=== PATIENT | male | born 1975 | race Caucasian/White ===

== ENCOUNTER 2019-05-28 20:08 | Observation (INO) | payer OTHER, SELFPAY ==
--- NOTE | 2019-05-28 20:55 | RAD REPORT ---
EXAM DESCRIPTION: CT - Stone Protocol - 05/28/2019 8:36 pm CLINICAL HISTORY: Flank pain. FLANK PAIN COMPARISON: No comparisons TECHNIQUE: Axial images were obtained without oral or IV contrast. Lack of contrast limits solid org an and vascular assessment. The [id number] spans the entirety of the system partially obscuring uppermost abdomen and lung bases. Coronal reformatted images were obtained and reviewed. All CT scans are performed using dose optimization technique as appropriate and may include automated exposure control or mA/KV adjustment according to patient size. FINDINGS: The lower lung duran are clear. Imaged portions of the liver and spleen show no suspicious findings on non-contrast imaging. The panc reas and adrenal glands are normal. No pathologic lymphadenopathy in the abdomen or pelvis. A 7 mm stone (1350 HU) is present at the left UPJ resulting in mild left hydronephrosis. Additional s mall stones are present bilaterally, largest inferior calyx left kidney measuring 6 mm. No bowel obstruction, free air, free fluid or abscess. Normal appendix noted.Mild sigmoid diverticulo sis coli without diverticulitis. No significant bony abnormality. Small bilateral fat containing inguinal hernias. IMPRESSION: 7 mm stone is present at the left UPJ resulting in mild left hydronephrosis.
[2019-05-28 21:06] LABS: BUN Blood Urea Nitrogen 14 mg/dL (7-18); Bicarbonate 28 mmol/L (21-32); Glucose Level 145 mg/dL (74-106); Potassium 3.9 mmol/L (3.5-5.1); Sodium Level 139 mmol/L (136-145)
[2019-05-28] MEDS ORDERED: ONDANSETRON 4 MG/2 ML VIAL ONE (21:08)
[2019-05-28] MEDS ORDERED: MORPHINE 4 MG/ML SYR ONE (21:08)
[2019-05-28] MEDS ORDERED: MAGNESIUM SULFATE 1 gm IVPB 1 GM/100 ML BAG IV ONE (21:08)
[2019-05-28] MEDS ORDERED: TAMSULOSIN 0.4 MG SR CAP ONE (21:08)
[2019-05-28 21:29] LABS: Urine Blood 2+ (NEG); Urine Glucose NEGATIVE (NEG); Urine Protein 1+ (NEG); Urine Specific Gravity 1.025 (1.005-1.030); Urine pH 5.5 (5.0-7.0)
--- NOTE | 2019-05-28 21:55 | ER ---
Nurse's Notes [facility] Name: Wili Negro Age: 43 yrs Sex: Male : 1975 Arrival Date: 05/28/2019 Time: 20:11 Bed 5 Private MD: Diagnosis: Calculus of kidney and ureter-7mm UPJ Presentation: 05/28 20:21 Presenting complaint: Patient states: Left flank pain that began earlier today; hx of lp1 kidney stones, states similar symptoms now; Denies any pain with urination at this time. Transition of care: patient was not received from another setting of care. Onset of symptoms was May 28, 2019. Risk Assessment: Do you want to hurt yourself or someone else? Patient reports no desire to harm self or others. Initial Sepsis Screen: Does the patient meet any 2 criteria? No. Patient's initial sepsis screen is negative. Does the patient have a suspected source of infection? No. Patient's initial sepsis screen is negative. Care prior to arrival: None. 20:21 Method Of Arrival: Ambulatory lp1 20:21 Acuity: SATISH 3 lp1 Historical: - Allergies: 20:23 Sulfa (Sulfonamide Antibiotics); lp1 20:23 Bactrim; lp1 - Home Meds: 20:23 multivitamin oral tab daily [Active]; Magnesium Oxide Oral [Active]; lp1 - PMHx: 20:23 Sinusitis; Hypertension; lp1 - PSHx: 20:23 Lithotripsy; lp1 - Immunization history:: Adult Immunizations up to date. - Social history:: Smoking status: Patient uses tobacco products, chewing tobacco. - Ebola Screening: : No symptoms or risks identified at this time. Screenin:25 Abuse screen: Denies threats or abuse. Denies injuries from another. Nutritional lp1 screening: No deficits noted. Tuberculosis screening: No symptoms or risk factors identified. Fall Risk None identified. Assessment: 20:24 General: Appears in no apparent distress. Behavior is calm, cooperative, appropriate lp1 for age. Pain: Complains of pain in left low back Pain currently is 4 out of 10 on a pain scale. Quality of pain is described as sharp, Pain began suddenly. Neuro: Level of Consciousness is awake, alert, obeys commands, Oriented to person, place, time, situation. Cardiovascular: Patient's skin is warm and dry. Respiratory: Respiratory effort is even, unlabored. GI: No signs and/or symptoms were reported involving the gastrointestinal system. : Reports pain in left flank(s), Denies burning with urination. EENT: No signs and/or symptoms were reported regarding the EENT system. Derm: Skin is pink, warm \T\ dry. Musculoskeletal: No deficits noted. 21:30 Reassessment: Patient appears in no apparent distress at this time. Patient returned lp1 from radiology at this time; states pain decreased to left flank. 22:30 Reassessment: Patient appears in no apparent distress at this time. Patient and/or lp1 family updated on plan of care and expected duration. Pain level reassessed. Patient denies any discomfort at this time. 23:03 Reassessment: Attempted to call report, nurse unavailable. lp1 Vital Signs: 20:22 BP 141 / 110; Pulse 76; Resp 18; Temp 97.7(TE); Pulse Ox 100% on R/A; Weight 108.86 kg; lp1 Height 5 ft. 8 in. (172.72 cm); Pain 4/10; 21:52 BP 131 / 81; Pulse 70; Resp 18; Pulse Ox 99% on R/A; lp1 23:00 BP 132 / 80; Pulse 65; Resp 18; Pulse Ox 97% on R/A; Pain 5/10; lp1 20:22 Body Mass Index 36.49 (108.86 kg, 172.72 cm) lp1 ED Course: 20:11 Patient arrived in ED. ag3 20:15 Annita Lynn FNP-C is [facility]. kb 20:15 Judd Villarreal MD is Attending Physician. kb 20:20 Nupur Swann, MANUELA is Primary Nurse. lp1 20:22 Triage completed. lp1 20:22 Arm band placed on. lp1 20:25 Patient has correct armband on for positive identification. lp1 20:37 CT Stone Protocol In Process Unspecified. EDMS 21:21 Abdomen 1 View (KUB) XRAY In Process Unspecified. EDMS 21:28 Initial lab(s) drawn, by me, sent to lab. Inserted saline lock: 20 gauge in left cm6 antecubital area, using aseptic technique. 21:53 Kendra Staton MD is Hospitalizing Provider. kb 21:53 No provider procedures requiring assistance completed. lp1 22:58 Patient admitted, IV remains in place. lp1 Administered Medications: 21:10 Drug: morphine 4 mg {Note: RASS 0.} Route: IVP; Site: left antecubital; lp1 21:37 Follow up: Response: Pain is decreased lp1 21:10 Drug: Zofran 4 mg Route: IVP; Site: left antecubital; lp1 21:37 Follow up: Response: No adverse reaction lp1 21:10 Drug: Flomax 0.4 mg Route: PO; lp1 22:59 Follow up: Response: No adverse reaction lp1 21:36 Drug: Magnesium Sulfate 1 grams Route: IVPB; Infused Over: 1 hrs; Site: left lp1 antecubital; 22:40 Follow up: IV Status: Completed infusion; IV Intake: 100ml lp1 23:28 Drug: TORadol - Ketorolac 15 mg Route: IVP; Site: left antecubital; lp1 23:31 Follow up: Response: Medication administered at discharge. lp1 Intake: 22:40 IV: 100ml; Total: 100ml. lp1 Outcome: 21:54 Decision to Hospitalize by Provider. kb 22:58 Condition: stable lp1 22:58 Instructed on the need for admit. 23:18 Admitted to Tele accompanied by tech, via wheelchair, room 410, with chart, Report lp1 called to MANUELA Hussein 23:31 Patient left the ED. lp1 Signatures: Dispatcher [employer] EDAnnita Benjamin, BRYAN SINHA-Nupur Perdue RN RN lp1 Shagufta Cramer 3 Yesi Lyn cm6 Corrections: (The following items were deleted from the chart) 23:28 23:00 BP 132 / 80; Pulse 65bpm; Resp 18bpm; Pulse Ox 97% RA; lp1 lp1
--- NOTE | 2019-05-28 21:55 | EDPHYS ---
Physician Documentation [facility] Name: Wili Negro Age: 43 yrs Sex: Male : 1975 Arrival Date: 05/28/2019 Time: 20:11 Bed 5 Private MD: ED Physician Judd Villarreal HPI: 05/28 20:39 This 43 yrs old Male presents to ER via Ambulatory with complaints of Back kb Pain. 20:47 The patient complains of pain in the left flank. The pain does not radiate. Onset: The kb symptoms/episode began/occurred just prior to arrival. Modifying factors: The symptoms are alleviated by nothing. the symptoms are aggravated by nothing. Associated signs and symptoms: The patient has no apparent associated signs or symptoms. Severity of pain: At its worst the pain was moderate in the emergency department the pain is unchanged. The patient has not experienced similar symptoms in the past. The patient has not recently seen a physician. 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 Has had kidney stones in the past and it feels the same. Historical: - Allergies: 20:23 Sulfa (Sulfonamide Antibiotics); lp1 20:23 Bactrim; lp1 - Home Meds: 20:23 multivitamin oral tab daily [Active]; Magnesium Oxide Oral [Active]; lp1 - PMHx: 20:23 Sinusitis; Hypertension; lp1 - PSHx: 20:23 Lithotripsy; lp1 - Immunization history:: Adult Immunizations up to date. - Social history:: Smoking status: Patient uses tobacco products, chewing tobacco. - Ebola Screening: : No symptoms or risks identified at this time. ROS: 20:40 Constitutional: Negative for fever, chills, and weight loss, ENT: Negative for injury, kb pain, and discharge, Neck: Negative for injury, pain, and swelling, Cardiovascular: Negative for chest pain, palpitations, and edema, Respiratory: Negative for shortness of breath, cough, wheezing, and pleuritic chest pain, Abdomen/GI: Negative for abdominal pain, nausea, vomiting, diarrhea, and constipation, : Negative for injury, bleeding, discharge, and swelling, MS/Extremity: Negative for injury and deformity, Skin: Negative for injury, rash, and discoloration, Neuro: Negative for headache, weakness, numbness, tingling, and seizure. 20:40 Back: Positive for flank pain, on the left. Exam: 20:40 Constitutional: This is a well developed, well nourished patient who is awake, alert, kb and in no acute distress. Head/Face: Normocephalic, atraumatic. ENT: Nares patent. No nasal discharge, no septal abnormalities noted. Tympanic membranes are normal and external auditory canals are clear. Oropharynx with no redness, swelling, or masses, exudates, or evidence of obstruction, uvula midline. Mucous membranes moist. Neck: Trachea midline, no thyromegaly or masses palpated, and no cervical lymphadenopathy. Supple, full range of motion without nuchal rigidity, or vertebral point tenderness. No Meningismus. Chest/axilla: Normal chest wall appearance and motion. Nontender with no deformity. No lesions are appreciated. Cardiovascular: Regular rate and rhythm with a normal S1 and S2. No gallops, murmurs, or rubs. Normal PMI, no JVD. No pulse deficits. Respiratory: Lungs have equal breath sounds bilaterally, clear to auscultation and percussion. No rales, rhonchi or wheezes noted. No increased work of breathing, no retractions or nasal flaring. Abdomen/GI: Soft, non-tender, with normal bowel sounds. No distension or tympany. No guarding or rebound. No evidence of tenderness throughout. Skin: Warm, dry with normal turgor. Normal color with no rashes, no lesions, and no evidence of cellulitis. MS/ Extremity: Pulses equal, no cyanosis. Neurovascular intact. Full, normal range of motion. Neuro: Awake and alert, GCS 15, oriented to person, place, time, and situation. Cranial nerves II-XII grossly intact. Motor strength 5/5 in all extremities. Sensory grossly intact. Cerebellar exam normal. Normal gait. 20:40 Back: pain, is absent, ROM is normal, normal spinal alignment noted, CVA tenderness, that is mild, that is moderate, is noted on the left. Vital Signs: 20:22 BP 141 / 110; Pulse 76; Resp 18; Temp 97.7(TE); Pulse Ox 100% on R/A; Weight 108.86 kg; lp1 Height 5 ft. 8 in. (172.72 cm); Pain 4/10; 21:52 BP 131 / 81; Pulse 70; Resp 18; Pulse Ox 99% on R/A; lp1 23:00 BP 132 / 80; Pulse 65; Resp 18; Pulse Ox 97% on R/A; Pain 5/10; lp1 20:22 Body Mass Index 36.49 (108.86 kg, 172.72 cm) lp1 MDM: 20:15 Patient medically screened. kb 20:40 Data reviewed: vital signs, nurses notes. Data interpreted: Pulse oximetry: on room air kb is 100 %. Interpretation: normal. 21:22 Physician consultation: Fran Briscoe MD was contacted at 21:05, regarding consult, kb patient's condition, and will see patient in office, tomorrow. 21:47 Counseling: I had a detailed discussion with the patient and/or guardian regarding: the kb historical points, exam findings, and any diagnostic results supporting the discharge/admit diagnosis, lab results, radiology results, the need for further work-up and treatment in the hospital. 21:51 ED course: Pt still in pain and requests to be admitted. Dr Briscoe will consult.. 05/28 20:17 Order name: Basic Metabolic Panel; Complete Time: 21:14 kb 05/28 20:36 Order name: Urine Dipstick--Ancillary (enter results); Complete Time: 21:42 mw2 05/28 20:17 Order name: CT Stone Protocol; Complete Time: 20:57 kb 05/28 21:04 Order name: Abdomen 1 View (KUB) XRAY 05/28 21:51 Order name: CBC with Diff 05/28 20:17 Order name: IV Start; Complete Time: 20:32 kb 05/28 20:17 Order name: Urine Dipstick-Ancillary (obtain specimen); Complete Time: 20:36 kb 05/28 22:07 Order name: CONS Physician Consult EDMS Administered Medications: 21:10 Drug: morphine 4 mg {Note: RASS 0.} Route: IVP; Site: left antecubital; lp1 21:37 Follow up: Response: Pain is decreased lp1 21:10 Drug: Zofran 4 mg Route: IVP; Site: left antecubital; lp1 21:37 Follow up: Response: No adverse reaction lp1 21:10 Drug: Flomax 0.4 mg Route: PO; lp1 22:59 Follow up: Response: No adverse reaction lp1 21:36 Drug: Magnesium Sulfate 1 grams Route: IVPB; Infused Over: 1 hrs; Site: left lp1 antecubital; 22:40 Follow up: IV Status: Completed infusion; IV Intake: 100ml lp1 23:28 Drug: TORadol - Ketorolac 15 mg Route: IVP; Site: left antecubital; lp1 23:31 Follow up: Response: Medication administered at discharge. lp1 Disposition: 05/29 07:25 Co-signature as Attending Physician, Judd Villarreal MD I agree with the assessment and wa plan of care. Disposition: 05/28/19 21:54 Hospitalization ordered by Kendra Staton for Observation. Preliminary diagnosis is Calculus of kidney and ureter - 7mm UPJ. - Bed requested for Telemetry/MedSurg (observation). - Status is Observation. lp1 - Condition is Stable. - Problem is new. - Symptoms are unchanged. UTI on Admission? No Signatures: Dispatcher [employer] [facility] Annita Lynn, ERNESTINE-C GRIDDLE COOK-Nupur Perdue, RN RN lp1 Judd Villarreal MD MD wa Aguilar, Jose, RN RN ja1 Corrections: (The following items were deleted from the chart) 05/28 21:54 21:54 Hospitalization Ordered by Kendra Staton MD for Observation. Preliminary diagnosis kb is Calculus of kidney and ureter. Bed requested for Telemetry/MedSurg (observation). Status is Observation. Condition is Stable. Problem is new. Symptoms are unchanged. UTI on Admission? No. gustavo 22:22 22:07 NPO ordered. [facility] 22:54 21:54 05/28/2019 21:54 Hospitalization Ordered by Kendra Staton MD for Observation. ja1 Preliminary diagnosis is Calculus of kidney and ureter - 7mm UPJ. Bed requested for Telemetry/MedSurg (observation). Status is Observation. Condition is Stable. Problem is new. Symptoms are unchanged. UTI on Admission? No. gustavo 23:31 22:54 05/28/2019 21:54 Hospitalization Ordered by Kendra Staton MD for Observation. lp1 Preliminary diagnosis is Calculus of kidney and ureter - 7mm UPJ. Bed requested for Telemetry/MedSurg (observation). Status is Observation. Condition is Stable. Problem is new. Symptoms are unchanged. UTI on Admission? No. ja1
--- NOTE | 2019-05-28 21:59 | RAD REPORT ---
EXAM DESCRIPTION: RAD - Abdomen 1 View (KUB) - 05/28/2019 9:24 pm CLINICAL HISTORY: kidney stone Pain COMPARISON: Stone Protocol dated 05/28/2019 FINDINGS: The bowel gas pattern is non-obstructive. No evidence of free air or pneumatosis. [place] c alculus is present in the region of the left UPJ, just superior to the left L3 transverse process. Ad ditional calculus noted inferior calyx left kidney.
[2019-05-28 22:22] LABS: Absolute Lymphocytes (CBC) 2.6 K/uL (0.7-4.9); Hematocrit 43.2 % (39.6-49.0); Lymphocytes % 27.6 % (15.3-44.8); MPV 7.3 fL (7.6-11.3); RBC Red Blood Cell Count 4.84 M/uL (4.33-5.43)
[2019-05-28] MEDS ORDERED: ACETAMINOPHEN 500 MG TAB PO PRN (22:28)
[2019-05-28] MEDS ORDERED: ONDANSETRON 4 MG/2 ML VIAL IV PRN (22:28)
[2019-05-28] MEDS ORDERED: KETOROLAC 30 MG/ML INJ IV PRN (22:28)
[2019-05-28] MEDS ORDERED: HYDROCODONE/APAP 5/325 MG TAB PO PRN (22:28)
[2019-05-28] MEDS ORDERED: MORPHINE 2 MG/ML SYR IV PRN (22:28)
[2019-05-28] MEDS ORDERED: DOCUSATE NA 100 MG CAP PO PRN (22:28)
--- NOTE | 2019-05-28 23:18 | P.HP ---
Certification for Inpatient Patient admitted to: Observation With expected LOS: <2 Midnights Patient will require the following post-hospital care: None Practitioner: I am a practitioner with admitting privileges, knowledge of patient current condition, hospital course, and medical plan of care. Services: Services provided to patient in accordance with Admission requirements found in Title 42 Section 412.3 of the Code of Federal Regulations Patient History Date of Service: 05/28/19 Reason for admission: 7mm left UPJ stone History of Present Illness: concepcion weems is a 43yoM w/ pmhx of nephrolithasis and tobacco dependence who presents today with acute onset left flank pain starting prior to presentation. he reports that his urine has been the same color, but he has noticed an increase in ur frequency and abdominal bloating x 2 days. he reports hx of renal stones x 10yrs. he states last episode was 10/2018 w/ surgical intervention to remove several right sided stones. he reports tobacco use - dips 1 can/day x 20yrs. he denies fever, chills, JUSTIN, N/V/CP/SOB, dizziness, cough, diarrhea, constipation, rashes, sores, bruising. he denies drugs andetoh use. Allergies Sulfa (Sulfonamide Antibiotics) Allergy (Unverified 12/12/16 19:08) Unknown Sulfa (Sulfonamide An Allergy (Uncoded 10/22/16 18:43) Unknown - Social History Smoking Status: Never smoker (dips - 1can/day) Alcohol use: No CD- Drugs: No Review of Systems General: Unremarkable Eyes: Unremarkable ENT: Unremarkable Respiratory: Unremarkable Cardiovascular: Unremarkable Gastrointestinal: Unremarkable Genitourinary: Frequency, As per HPI Musculoskeletal: Unremarkable Integumentary: Unremarkable Neurological: Unremarkable Lymphatics: Unremarkable Physical Examination - Physical Exam General: Alert, In no apparent distress, Oriented x3, Cooperative, Other ( abdominal obesity, conversational, not ill or toxic appearing, interactive a/ox3 , ) HEENT: Atraumatic, PERRLA, Mucous membr. moist/pink, EOMI Neck: Supple Respiratory: Clear to auscultation bilaterally, Normal air movement Cardiovascular: No edema, Normal pulses, Regular rate/rhythm, No murmurs Capillary refill: <2 Seconds Gastrointestinal: Normal bowel sounds, Soft and benign, No rebound, No guarding , Distended (very mild) Musculoskeletal: No clubbing, No swelling, No tenderness Integumentary: No rashes, No breakdown, No significant lesion Neurological: Cranial nerves 3-12 intact, Other (gait not tested) External genitalia: Deferred Rectal: Deferred Other Physical/Emotional Findings: +left flank pain - Studies Laboratory Data (last 24 hrs) 05/28/19 22:02: WBC 9.5, Hgb 14.8, Hct 43.2, Plt Count 295 05/28/19 20:28: Sodium 139, Potassium 3.9, BUN 14, Creatinine 0.84, Glucose 145 H Assessment and Plan - Plan 43yoM admitted w/ # nephrolithiasis - 7mm renal stone @ UPJ / recurrence/ UA negative for LE/ nitrites admit to obs npo pMN analgesics urology consulted IVF, strict I/O tsh, a1c in AM # tobacco dependence consoled on cessation and lifestyle changes nicotine patch DVT ppx -SCD - Advance Directives Does patient have a Living Will: No Does patient have a Durable POA for Healthcare: No
[2019-05-28] MEDS ORDERED: KETOROLAC 30 MG/ML INJ ONE (23:26)
[2019-05-29 01:10] VITALS: BMI 36.4
[2019-05-29] MEDS: NA CHLORIDE 0.9% 1,000 ML IV SCH ×2 (01:27→11:12)
[2019-05-29 04:17] LABS: Absolute Lymphocytes (CBC) 2.4 K/uL (0.7-4.9); Basophils % 0.8 % (0-1.3); Hematocrit 40.4 % (39.6-49.0); MPV 7.3 fL (7.6-11.3); RBC Red Blood Cell Count 4.57 M/uL (4.33-5.43)
[2019-05-29 04:24] LABS: Protime INR 0.97
[2019-05-29 04:56] LABS: ALT/SGPT 36 U/L (12-78); AST/SGOT 17 U/L (15-37); Albumin 3.7 g/dL (3.4-5.0); Alkaline Phosphatase 62 U/L (45-117); BUN Blood Urea Nitrogen 13 mg/dL (7-18); Bicarbonate 31 mmol/L (21-32); Bilirubin Total 0.3 mg/dL (0.2-1.0); Glucose Level 107 mg/dL (74-106); Magnesium 2.3 mg/dL (1.8-2.4); Potassium 4.7 mmol/L (3.5-5.1); Protein, Total 6.9 g/dL (6.4-8.2); Sodium Level 141 mmol/L (136-145)
[2019-05-29] MEDS ORDERED: NICOTINE 7 MG/PAT TD SCH (09:00)
[2019-05-29 09:23] VITALS: O2SAT 99
--- NOTE | 2019-05-29 13:25 | P.DS ---
Admission Date: 05/28/19 Discharge Date: 05/29/19 Disposition: ROUTINE DISCHARGE Discharge Condition: GOOD Reason for Admission: 7mm left UPJ stone Consultations: Urologist Procedures: None Hospital Course: Discharge diagnosis Nephrolithiasis Flank pain History of gout Tobacco dependence Mr. Negro is 43 y/o male with h/o nephrolithiasis and tobacco use who presented to the hospital with c/o L flank pain with associated increased urinary frequency and abdominal bloating. Initial evaluation with CT abdomen showed 7mm UPJ stone on the L. Urinalysis showed hematuria. Patient was initiated on pain control and IV hydration. He was evaluated by urologist and has been cleared for discharge. His pain is resolved. He will be discharged home on flomax and pain control, to follow up with urologist outpatient. He remained hemodynamically stable for discharge home. Vital Signs/Physical Exam: Temp Pulse Resp BP Pulse Ox 97.5 F 69 17 121/62 100 05/29/19 12:00 05/29/19 12:00 05/29/19 12:00 05/29/19 12:00 05/29/19 12:00 General: Alert, In no apparent distress, Oriented x3 HEENT: Atraumatic, Normocephalic, PERRLA Neck: Supple, 2+ carotid pulse no bruit, JVD not distended Respiratory: Clear to auscultation bilaterally, Normal air movement Cardiovascular: No edema, Normal pulses, Regular rate/rhythm, Normal S1 S2 Gastrointestinal: Normal bowel sounds, Hypoactive, Soft and benign Integumentary: No rashes, No breakdown, No significant lesion Neurological: Normal gait, Normal speech, Normal strength at 5/5 x4 extr Laboratory Data at Discharge: WBC 8.5 K/uL (4.3-10.9) 05/29/19 03:53 Hgb 14.2 g/dL (13.6-17.9) 05/29/19 03:53 Hct 40.4 % (39.6-49.0) 05/29/19 03:53 Plt Count 264 K/uL (152-406) 05/29/19 03:53 PT 11.5 SECONDS (9.5-12.5) 05/29/19 03:53 INR 0.97 05/29/19 03:53 Sodium 141 mmol/L (136-145) 05/29/19 03:53 Potassium 4.7 mmol/L (3.5-5.1) 05/29/19 03:53 BUN 13 mg/dL (7-18) 05/29/19 03:53 Creatinine 0.84 mg/dL (0.55-1.3) 05/29/19 03:53 Glucose 107 mg/dL (74-106) H 05/29/19 03:53 Magnesium 2.3 mg/dL (1.8-2.4) 05/29/19 03:53 Total Bilirubin 0.3 mg/dL (0.2-1.0) 05/29/19 03:53 AST 17 U/L (15-37) 05/29/19 03:53 ALT 36 U/L (12-78) 05/29/19 03:53 Alkaline Phosphatase 62 U/L (45-117) 05/29/19 03:53 Home Medications: Allopurinol 100 mg PO DAILY #30 tablet 05/29/19 Codeine/APAP [Tylenol W/Codeine #3 tab] 1 tab PO Q6HP PRN #36 tab 05/29/19 Magnesium Oxide [Mag 0X*] 400 mg PO DAILY 05/29/19 Mv-Mn/Iron/FA/Vit K/K.ginseng [[employer] Tab] 1 tab PO DAILY 06/05 Tamsulosin [Flomax] 0.4 mg PO BID #30 cap 05/29/19 New Medications: Allopurinol 100 mg PO DAILY #30 tablet Codeine/APAP [Tylenol W/Codeine #3 tab] 1 tab PO Q6HP PRN #36 tab PRN Reason: Pain Tamsulosin [Flomax] 0.4 mg PO BID #30 cap Diet: Regular Activity: Ad jim Followup: Fran Briscoe MD [ACTIVE - CAN ADMIT] - 1 Week
[2019-05-29 16:58] VITALS: BP 141/82; TEMP 97.2
--- NOTE | 2019-05-30 11:36 | CON ---
History Of Present Illness: 43-year-old male came in with left flank pain. Workup revealed a 7 mm stone in the left UPJ. The patient has been pain- free since admission and doing well otherwise. He has had lithotripsy before in the past. Allergies: SULFA, BACTRIM. Home Medications: Multivitamin, magnesium oxide. Past Medical History: Sinusitis, hypertension. Past Surgical History: Lithotripsy of kidney stones. Social History: Uses tobacco products, chews tobacco. Review of Systems: 10-point review of systems otherwise negative. Physical Examination: Vital Signs: Patient BP was 132/80, pulse 65, respiratory rate 18, sats 97% on room air. The pain was gone. Laboratory Data: White count was 8.5, H and H are 14 and 40, platelet count 264. Coagulation studies normal. Chemistry: Sodium 141, potassium 4.7, chloride 108, bicarb 31, glucose 107, BUN 13, creatinine 0.8, GFR greater than 90. Liver is negative. Hemoglobin A1c 5.8, borderline elevated. Magnesium was good at 2.3. Thyroid studies good. Urinalysis, pH 5.5, 2+ blood, 1+ protein. The patient had a KUB showing oblong calculus in the region of the left UPJ of the L3 process on the left. CT scan confirmed a 7 mm stone in my left UPJ. Plan: I will recommend the patient to lie on that side with the pain, so the stone will not plug the upj, if he is in pain and continue medical management. Follow up after discharge. BHARTI/STEPHANIE Voice ID: [id number] Report ID: [id number] DANE
== END 2019-05-29 16:00 | disposition home or self-care (01) ==
LOC: ER 20:08 → ERHOLD 22:22 → 4TH 23:18
PROVIDERS: ADMIT Internal Medicine; ATTEND Internal Medicine
DX: N20.0 Calculus of kidney (principal); M10.9 Gout, unspecified; Z88.2 Allergy status to sulfonamides; F17.220 Nicotine dependence, chewing tobacco, uncomplicated
CPT/HCPCS: 36415; 74018; 74176; 76377; 80048; 80053; 81003; 83036; 83735; 84443; 85025; 85610; 96365; 96375; 99285; G0378; J2405; J3475; J7030

== ENCOUNTER 2019-07-09 18:03 | Emergency (ER) | payer SELFPAY ==
[2019-07-09 19:45] LABS: Urine Blood 2+ (NEG); Urine Glucose NEGATIVE (NEG); Urine Protein NEGATIVE (NEG); Urine Specific Gravity 1.015 (1.005-1.030)
--- NOTE | 2019-07-09 20:08 | EDPHYS ---
Physician Documentation [facility] Name: Wili Negro Age: 43 yrs Sex: Male : 1975 Arrival Date: 07/09/2019 Time: 18:08 Bed 11 Private MD: ED Physician Joseph Hanley HPI: 07/10 02:00 This 43 yrs old Male presents to ER via Ambulatory with complaints of Urinary tw4 Problem. 02:00 The patient presents with urinary symptoms, dysuria. tw4 02:00 Onset: The symptoms/episode began/occurred yesterday. Modifying factors: The symptoms tw4 are alleviated by nothing, the symptoms are aggravated by nothing. Associated signs and symptoms: The patient has no apparent associated signs or symptoms. Severity of symptoms: At their worst the symptoms were mild, in the emergency department the symptoms are unchanged. The patient has experienced a previous episode. The patient has been recently been admitted at [facility], was discharged last week. Historical: - Allergies: 07/09 18:51 Bactrim; iw 18:51 Sulfa (Sulfonamide Antibiotics); iw - PMHx: 18:51 Hypertension; Sinusitis; Kidney stones; iw - PSHx: 18:51 Lithotripsy; iw - Immunization history:: Adult Immunizations not up to date. - Social history:: Smoking status: . - Ebola Screening: : Patient negative for fever greater than or equal to 101.5 degrees Fahrenheit, and additional compatible Ebola Virus Disease symptoms Patient denies exposure to infectious person Patient denies travel to an Ebola-affected area in the 21 days before illness onset No symptoms or risks identified at this time. ROS: 07/10 02:00 Constitutional: Negative for fever, chills, and weight loss, Eyes: Negative for injury, tw4 pain, redness, and discharge, Cardiovascular: Negative for chest pain, palpitations, and edema, Respiratory: Negative for shortness of breath, cough, wheezing, and pleuritic chest pain, Abdomen/GI: Negative for abdominal pain, nausea, vomiting, diarrhea, and constipation. MS/Extremity: Negative for injury and deformity, Skin: Negative for injury, rash, and discoloration, Neuro: Negative for headache, weakness, numbness, tingling, and seizure. : Positive for urinary symptoms. Exam: 02:00 Constitutional: This is a well developed, well nourished patient who is awake, alert, tw4 and in no acute distress. Head/Face: Normocephalic, atraumatic. Chest/axilla: Normal chest wall appearance and motion. Nontender with no deformity. No lesions are appreciated. Cardiovascular: Regular rate and rhythm with a normal S1 and S2. No gallops, murmurs, or rubs. Normal PMI, no JVD. No pulse deficits. Respiratory: Lungs have equal breath sounds bilaterally, clear to auscultation and percussion. No rales, rhonchi or wheezes noted. No increased work of breathing, no retractions or nasal flaring. Abdomen/GI: Soft, non-tender, with normal bowel sounds. No distension or tympany. No guarding or rebound. No evidence of tenderness throughout. Back: No spinal tenderness. No costovertebral tenderness. Full range of motion. MS/ Extremity: Pulses equal, no cyanosis. Neurovascular intact. Full, normal range of motion. Neuro: Awake and alert, GCS 15, oriented to person, place, time, and situation. Cranial nerves II-XII grossly intact. Motor strength 5/5 in all extremities. Sensory grossly intact. Cerebellar exam normal. Normal gait. Vital Signs: 07/09 18:51 BP 132 / 92; Pulse 69; Resp 16; Temp 98.0; Pulse Ox 98% on R/A; Weight 108.86 kg; iw Height 5 ft. 8 in. (172.72 cm); 18:51 Body Mass Index 36.49 (108.86 kg, 172.72 cm) iw MDM: 19:52 Patient medically screened. tw4 07/10 02:00 Differential diagnosis: nonspecific abdominal pain. Data reviewed: vital signs, nurses tw4 notes. Data interpreted: Pulse oximetry: Interpretation: normal. Counseling: I had a detailed discussion with the patient and/or guardian regarding: the historical points, exam findings, and any diagnostic results supporting the discharge/admit diagnosis. Special discussion: I discussed with the patient/guardian in detail that at this point there is no indication for admission to the hospital. It is understood, however, that if the symptoms persist or worsen the patient needs to return immediately for re-evaluation. 07/09 19:41 Order name: Urine Dipstick--Ancillary (enter results) mw2 Administered Medications: No medications were administered Disposition: 07/09/19 20:08 Discharged to Home. Impression: Hematuria, unspecified. - Condition is Stable. - Discharge Instructions: Dysuria, Hematuria, Adult. - Prescriptions for Pyridium 200 mg Oral Tablet - take 1 tablet by ORAL route every 8 hours for 3 days; 9 tablet. - Medication Reconciliation Form, Thank You Letter, Antibiotic Education, Prescription Opioid Use form. - Follow up: Private Physician; When: Upon discharge from the Emergency Department; Reason: Recheck today's complaints, Continuance of care. - Problem is new. - Symptoms have improved. Signatures: Dispatcher [employer] EDMS Liliana Spear RN RN aa1 Phuong Potter RN RN iw Joseph Hanley MD MD tw4 Corrections: (The following items were deleted from the chart) 07/09 20:20 20:08 07/09/2019 20:08 Discharged to Home. Impression: Hematuria, unspecified. aa1 Condition is Stable. Forms are Medication Reconciliation Form, Thank You Letter, Antibiotic Education, Prescription Opioid Use. Follow up: Private Physician; When: Upon discharge from the Emergency Department; Reason: Recheck today's complaints, Continuance of care. Problem is new. Symptoms have improved. tw4
--- NOTE | 2019-07-09 20:08 | ER ---
Nurse's Notes [facility] Name: Wili Negro Age: 43 yrs Sex: Male : 1975 Arrival Date: 07/09/2019 Time: 18:08 Bed 11 Private MD: Diagnosis: Hematuria, unspecified Presentation: 07/09 18:50 Presenting complaint: Patient states: urinary frequency since yesterday, denies back iw pain or pain with urination. Transition of care: patient was not received from another setting of care. Onset of symptoms was July 08, 2019. Risk Assessment: Do you want to hurt yourself or someone else? Patient reports no desire to harm self or others. Initial Sepsis Screen: Does the patient meet any 2 criteria? No. Patient's initial sepsis screen is negative. Does the patient have a suspected source of infection? No. Patient's initial sepsis screen is negative. Care prior to arrival: None. 18:50 Method Of Arrival: Ambulatory iw 18:50 Acuity: SATISH 4 iw Historical: - Allergies: 18:51 Bactrim; iw 18:51 Sulfa (Sulfonamide Antibiotics); iw - PMHx: 18:51 Hypertension; Sinusitis; Kidney stones; iw - PSHx: 18:51 Lithotripsy; iw - Immunization history:: Adult Immunizations not up to date. - Social history:: Smoking status: . - Ebola Screening: : Patient negative for fever greater than or equal to 101.5 degrees Fahrenheit, and additional compatible Ebola Virus Disease symptoms Patient denies exposure to infectious person Patient denies travel to an Ebola-affected area in the 21 days before illness onset No symptoms or risks identified at this time. Screenin:43 Abuse screen: Denies threats or abuse. Denies injuries from another. Nutritional iw screening: No deficits noted. Tuberculosis screening: No symptoms or risk factors identified. Fall Risk None identified. Assessment: 19:42 General: Appears in no apparent distress. Behavior is calm, cooperative. Pain: Denies iw pain. Neuro: Level of Consciousness is awake, alert, obeys commands, Oriented to person, place, time, situation, Moves all extremities. Full function. Cardiovascular: Patient's skin is warm and dry. Respiratory: Respiratory effort is even, unlabored, Respiratory pattern is regular. : Reports urinary frequency. Derm: Skin is intact, is healthy with good turgor. Musculoskeletal: Range of motion: intact in all extremities. 20:20 Reassessment: Patient appears in no apparent distress at this time. Patient is alert, aa1 oriented x 3, equal unlabored respirations, skin warm/dry/pink. Discussed d/c \T\ f/u instructions with pt; denies questions or concerns at this time. Ambulatory to lobby with steady gait. Vital Signs: 18:51 BP 132 / 92; Pulse 69; Resp 16; Temp 98.0; Pulse Ox 98% on R/A; Weight 108.86 kg; iw Height 5 ft. 8 in. (172.72 cm); 18:51 Body Mass Index 36.49 (108.86 kg, 172.72 cm) iw ED Course: 18:08 Patient arrived in ED. rg4 18:50 Triage completed. iw 18:51 Arm band placed on. iw 19:25 Joseph Hanley MD is Attending Physician. tw4 19:42 Phuong Potter RN is Primary Nurse. iw 19:43 Patient has correct armband on for positive identification. iw 20:20 No provider procedures requiring assistance completed. Patient did not have IV access aa1 during this emergency room visit. Administered Medications: No medications were administered Outcome: 20:08 Discharge ordered by . tw4 20:20 Discharged to home ambulatory, with significant other. aa1 20:20 Condition: good 20:20 Discharge instructions given to patient, Instructed on discharge instructions, follow up and referral plans. medication usage, Demonstrated understanding of instructions, follow-up care, medications, Prescriptions given X 1. 20:20 Patient left the ED. aa1 Signatures: Liliana Spear RN RN aa1 Phuong Potter, MANUELA Bess Raquel 4 Joseph Hanley MD MD tw4
[2019-07-10 02:15] VITALS: BP 132/92; TEMP 98; O2SAT 98
== END 2019-07-09 20:20 | disposition home or self-care (01) ==
LOC: ER 18:03
DX: R31.9 Hematuria, unspecified (principal); I10 Essential (primary) hypertension; Z88.1 Allergy status to other antibiotic agents; Z88.2 Allergy status to sulfonamides
CPT/HCPCS: 81003; 99282